=== PATIENT | female | born 1995 | race African-American/Black ===

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

== ENCOUNTER 2017-05-29 12:23 | Observation (INO) | payer MEDICAID ==
[~2017-05-29] VITALS: Ht 160 cm; Wt 90.3 kg
[2017-05-29] MEDS ORDERED: PNV1TABL76 MT (13:30)
[2017-05-29] MEDS ORDERED: OCD PO (13:30)
[2017-05-29] MEDS ORDERED: FERR325T6 PO (13:30)
[2017-05-29] MEDS ORDERED: ONDANSETRON HCL 4MG/2ML VIAL IV NR (13:45)
[2017-05-29 14:30] LABS: CLARITY URINE CLOUDY (CLEAR); COLOR URINE DARK YELLOW (YELLOW); KETONES URINE 4+ (NEGATIVE); LEUKOCYTE ESTERASE URINE TRACE (NEGATIVE); NITRITE URINE NEGATIVE (NEGATIVE); OCCULT BLOOD URINE NEGATIVE (NEGATIVE); PROTEIN URINE NEGATIVE (NEGATIVE); SPECIFIC GRAVITY URINE 1.018 (1.005-1.030)
[2017-05-29 14:42] LABS: CHLORIDE 104 mEq/L (98-107)
[2017-05-29] MEDS ORDERED: MVI, ADULT NO.1 10 ML in SODIUM CHLORIDE 0.9% 1,000 ML IV ONE ×2 (15:00)
== END 2017-05-29 17:00 | disposition home or self-care (01) ==
LOC: L&D 12:23
PROVIDERS: ADMIT Specialist; ATTEND Specialist
DX: O21.2 Late vomiting of pregnancy (principal); Z3A.22 22 weeks gestation of pregnancy
CPT/HCPCS: 36415; 80048; 81003; 82565; 96365; 96366; 96375; 99281; G0378; J2405; J3490; J7030

== ENCOUNTER 2017-08-21 12:10 | Observation (INO) | payer MEDICAID ==
[~2017-08-21] VITALS: Ht 160 cm; Wt 90.7 kg
[~2017-08-21 12:10] MED LIST: FERR325T6 PO; OCD PO; PNV1TABL76 MT
[2017-08-21] MEDS ORDERED: TERBUTALINE SULFATE 1MG/ML VIAL SUBCUT NR (15:45)
== END 2017-08-21 16:40 | disposition home or self-care (01) ==
LOC: L&D 12:10
PROVIDERS: ADMIT Specialist; ATTEND Specialist
DX: O26.853 Spotting complicating pregnancy, third trimester (principal); Z3A.34 34 weeks gestation of pregnancy
CPT/HCPCS: 76805; 76818; 96372; 99281; G0378; J3105

== ENCOUNTER 2018-12-10 11:00 | Emergency (ER) | payer MEDICAID ==
[~2018-12-10] VITALS: Ht 157.5 cm; Wt 100.0 kg
[2018-12-10] MEDS ORDERED: IBUPROFEN 600MG TABLET PO STA (14:52)
[2018-12-10 15:17] LABS: BASOPHILS % 0.5 % (0.0-2.0); HEMATOCRIT. 35.8 % (36.0-48.0); HEMOGLOBIN. 11.9 g/dL (12.0-16.0); LYMPHOCYTES % 16.5 % (20.0-50.0); MEAN CORPUSCULAR HEMOGLOBIN 28.4 pg (28.0-32.0); MEAN CORPUSCULAR VOLUME 85.4 fL (81.0-99.0); MEAN PLATELET VOLUME 7.8 fl (7.4-10.4); MONOCYTES % 6.6 % (2.0-8.0); NEUTROPHILS % 72.4 % (40.0-76.0); PLATELET 268 x1000/uL (130-400); RED BLOOD CELL COUNT 4.19 mill/uL (4.2-5.4); RED CELL DISTRIBUTION WIDTH 15.3 % (11.6-14.6)
[2018-12-10 15:24] LABS: CHLORIDE 106 mEq/L (98-107)
[2018-12-10 15:28] LABS: CLARITY URINE CLOUDY (CLEAR); COLOR URINE YELLOW (YELLOW); KETONES URINE 1+ (NEGATIVE); LEUKOCYTE ESTERASE URINE 1+ (NEGATIVE); NITRITE URINE NEGATIVE (NEGATIVE); OCCULT BLOOD URINE NEGATIVE (NEGATIVE); PH URINE 6.5 (4.5-8.0); PROTEIN URINE NEGATIVE (NEGATIVE); SPECIFIC GRAVITY URINE 1.029 (1.005-1.030)
[2018-12-10 17:33] VITALS: BP 136/66
== END 2018-12-10 17:36 | disposition home or self-care (01) ==
LOC: ER 14:34
DX: N30.00 Acute cystitis without hematuria (principal); L73.2 Hidradenitis suppurativa; J45.909 Unspecified asthma, uncomplicated; Z87.440 Personal history of urinary (tract) infections; Z98.890 Other specified postprocedural states; F12.10 Cannabis abuse, uncomplicated; Z91.010 Allergy to peanuts; Z79.899 Other long term (current) drug therapy
CPT/HCPCS: 36415; 74018; 81003; 81025; 99284

== ENCOUNTER 2020-11-09 09:18 | Emergency (ER) | payer OTHER ==
[~2020-11-09] VITALS: Ht 152.4 cm; Wt 91.0 kg
[2020-11-09 09:25] VITALS: BP 135/85
[2020-11-09 10:50] LABS: CLARITY URINE CLEAR (CLEAR); COLOR URINE YELLOW (YELLOW); KETONES URINE NEGATIVE (NEGATIVE); LEUKOCYTE ESTERASE URINE NEGATIVE (NEGATIVE); NITRITE URINE NEGATIVE (NEGATIVE); OCCULT BLOOD URINE NEGATIVE (NEGATIVE); PH URINE 6.5 (4.5-8.0); PROTEIN URINE NEGATIVE (NEGATIVE); SPECIFIC GRAVITY URINE 1.024 (1.005-1.030)
== END 2020-11-09 12:39 | disposition home or self-care (01) ==
LOC: ER 09:18
DX: S79.912A Unspecified injury of left hip, initial encounter (principal); M54.5 Low back pain; F12.10 Cannabis abuse, uncomplicated; J45.909 Unspecified asthma, uncomplicated; Z98.890 Other specified postprocedural states; Z91.010 Allergy to peanuts; W01.0XXA Fall on same level from slipping, tripping and stumbling without subsequent striking against object, initial encounter; Y93.89 Activity, other specified; Y92.89 Other specified places as the place of occurrence of the external cause; Y99.8 Other external cause status
CPT/HCPCS: 73502; 81003; 81025; 99284